=== PATIENT | female | born 1995 | race African-American/Black ===

== ENCOUNTER 2017-04-12 21:30 | Emergency (ER) | payer OTHER ==
[~2017-04-12] VITALS: Ht 170.2 cm; Wt 64.1 kg
[2017-04-12 21:40] VITALS: TEMP 37
[2017-04-12] MEDS ORDERED: ACETAMINOPHEN 500 MG TAB PO STA (22:20)
--- NOTE | 2017-04-12 22:24 | EMERGENCY ROOM VISIT NOTE ---
History Report prepared by Jahaira: Pooja Singh Under the Supervision of: Dr. Vipul Arguello M.D. First contact with patient: 21:53 Chief Complaint: VAGINAL BLEEDING Stated Complaint: ABDOMINAL PAIN, BLEEDING, 5-6 WKS History of Present Illness The patient is a 21 year old female who presents to the Emergency Room with complaints of persistent vaginal bleeding that began a few days ago. She notes she has severe lower abdominal pain. The patient states that this is her second , noting that she previously had an . She notes that her last menstrual period was on 02/27/17. The patient still has her appendix and gallbladder. She did not want us to call her parents. Source of History: patient Onset: few days Position: other (vagina) Quality: other (vaginal bleeding) Timing: other (persistent) Associated Symptoms: + abdominal pain Review of Systems See HPI for pertinent positives & negatives. A total of 10 systems reviewed and were otherwise negative. Past Medical & Surgical Medical Problems: (1) Hypertension Family History Heart disease Hypertension Social History Smoking Status: Never Smoker Smokeless Tobacco Use: No Alcohol Use: occasionally Drug Use: none Marital Status: single Housing Status: lives alone Occupation Status: student Current/Historical Medications No Active Prescriptions or Reported Meds Allergies Coded Allergies: No Known Allergies (Unverified , 04/14/17) Physical Exam Vital Signs Date Time Temp Pulse Resp B/P (MAP) Pulse Ox O2 Delivery O2 Flow Rate FiO2 04/13/17 01:49 79 18 118/73 99 04/12/17 23:55 84 18 121/73 99 Room Air 04/12/17 21:40 37.0 80 20 123/78 98 Room Air Physical Exam GENERAL: Patient is a healthy-appearing well-nourished female HEAD: Normocephalic atraumatic EYES: Ocular movements intact pupils equal and react to light OROPHARYNX mucous membranes are moist no exudates present no erythema or edema present NECK: Supple no nuchal rigidity CHEST: Good equal expansion LUNGS: Clear and equal to auscultation CARDIAC: Normal S1 and S2 ABDOMEN: Soft nontender no guarding BACK: No CVA tenderness EXTREMITIES: No pain upon palpation normal muscle strength in all groups no clubbing cyanosis or edema NEURO: Patient is following commands and answering questions appropriately. Alert and oriented x3 Cranial Nerves 2-12 grossly intact Medical Decision & Procedures ER Provider Diagnostic Interpretation: Radiology results as stated below per my review and radiologist interpretation: US OB 1st trimester: 8mm endometrial complex. Heterogeneous appearance of the gestational sac. No pole. Normal ovaries with blood flow demonstrated to them. No adnexal masses. Trace free fluid in pelvic cul-de-sac and right adnexa. No other significant abnormalities. At this time findings may present the appearance of a very early normal versus abnormal intrauterine . No adnexal masses suggest ectopic at this time. Suggest following the hCG trend with short interval follow up ultrasound as clinically indicated. Radiologist: Dylon Eisenberg M.D. Study ready at 23:20 and initial results transmitted at 23:47. Laboratory Results 04/12/17 22:34 Red Blood Count 4.35, Mean Corpuscular Volume 92.0, Mean Corpuscular Hemoglobin 30.6, Mean Corpuscular Hemoglobin Concent 33.3, Mean Platelet Volume 9.9, Neutrophils (%) (Auto) 60.0, Lymphocytes (%) (Auto) 33.1, Monocytes (%) (Auto) 5.7, Eosinophils (%) (Auto) 0.7, Basophils (%) (Auto) 0.2, Neutrophils # (Auto) 5.70, Lymphocytes # (Auto) 3.14, Monocytes # (Auto) 0.54, Eosinophils # (Auto) 0.07, Basophils # (Auto) 0.02 04/12/17 22:34 Test 04/12/17 22:34 04/12/17 23:50 White Blood Count 9.50 K/uL (4.8-10.8) Red Blood Count 4.35 M/uL (4.2-5.4) Hemoglobin 13.3 g/dL (12.0-16.0) Hematocrit 40.0 % (37-47) Mean Corpuscular Volume 92.0 fL (80-100) Mean Corpuscular Hemoglobin 30.6 pg (25-34) Mean Corpuscular Hemoglobin Concent 33.3 g/dl (32-36) Platelet Count 275 K/uL (130-400) Mean Platelet Volume 9.9 fL (7.4-10.4) Neutrophils (%) (Auto) 60.0 % Lymphocytes (%) (Auto) 33.1 % Monocytes (%) (Auto) 5.7 % Eosinophils (%) (Auto) 0.7 % Basophils (%) (Auto) 0.2 % Neutrophils # (Auto) 5.70 K/uL (1.4-6.5) Lymphocytes # (Auto) 3.14 K/uL (1.2-3.4) Monocytes # (Auto) 0.54 K/uL (0.11-0.59) Eosinophils # (Auto) 0.07 K/uL (0-0.5) Basophils # (Auto) 0.02 K/uL (0-0.2) RDW Standard Deviation 46.5 fL (36.4-46.3) RDW Coefficient of Variation 13.8 % (11.5-14.5) Immature Granulocyte % (Auto) 0.3 % Immature Granulocyte # (Auto) 0.03 K/uL (0.00-0.02) Prothrombin Time 10.4 SECONDS (9.0-12.0) Prothromb Time International Ratio 1.0 (0.9-1.1) Activated Partial Thromboplast Time 25.2 SECONDS (21.0-31.0) Partial Thromboplastin Ratio 1.0 Anion Gap 5.0 mmol/L (3-11) Est Creatinine Clear Calc Drug Dose 116.0 ml/min Estimated GFR () 133.3 Estimated GFR (Non- 115.0 BUN/Creatinine Ratio 11.3 (10-20) Calcium Level 9.3 mg/dl (8.5-10.1) Total Bilirubin 0.4 mg/dl (0.2-1) Aspartate Amino Transf (AST/SGOT) 14 U/L (15-37) Alanine Aminotransferase (ALT/SGPT) 19 U/L (12-78) Alkaline Phosphatase 43 U/L (45-117) Total Protein 8.7 gm/dl (6.4-8.2) Albumin 4.4 gm/dl (3.4-5.0) Globulin 4.3 gm/dl (2.5-4.0) Albumin/Globulin Ratio 1.0 (0.9-2) Human Chorionic Gonadotropin, Quant 531 mIU/mL Urine Color ORANGE Urine Appearance CLOUDY (CLEAR) Urine pH 5.0 (4.5-7.5) Urine Specific [place] 1.027 (1.000-1.030) Urine Protein TRACE (NEG) Urine Glucose (UA) NEG (NEG) Urine Ketones 1+ (NEG) Urine Occult Blood 3+ (NEG) Urine Nitrite NEG (NEG) Urine Bilirubin NEG (NEG) Urine Urobilinogen NEG (NEG) Urine Leukocyte Esterase TRACE (NEG) Urine WBC (Auto) 5-10 /hpf (0-5) Urine RBC (Auto) >30 /hpf (0-4) Urine Hyaline Casts (Auto) 5-10 /lpf (0-5) Urine Epithelial Cells (Auto) >30 /lpf (0-5) Urine Bacteria (Auto) NEG (NEG) Urine Test POS (NEG) Labs reviewed by ED physician. Medications Administered Medications (Trade) Dose Ordered Sig/Urmila Route Start Time Stop Time Status Last Admin Dose Admin Acetaminophen (Tylenol Tab) 1,000 mg NOW STAT PO 04/12/17 22:20 04/12/17 22:21 DC 04/12/17 22:43 1,000 MG Potassium Chloride (Klor-Con Tab) 70 meq NOW STAT PO 04/12/17 23:59 04/13/17 00:00 DC 04/13/17 00:19 60 MEQ Potassium Chloride (Klor-Con M10) 10 meq STK-MED ONCE .ROUTE 04/13/17 00:13 04/13/17 00:14 DC 04/13/17 00:19 10 MEQ ED Course 2218: Past medical records reviewed. The patient was evaluated in room C5. A complete history and physical examination was performed. 2220: Ordered Tylenol Tab 1000mg PO. 2339: Ordered Potassium Chloride 70 meq PO. 2359: Ordered Potassium Chloride 70meq PO. Medical Decision Differential diagnosis: Etiologies such as ectopic , dysfunction uterine bleeding, bleeding dyscrasia, trauma, infection, as well as others were entertained. This is a 21 year old emergency department complaining of vaginal bleeding the patient believes she is approximately 6 weeks . The patient was sent for an ultrasound to verify her . This does not show a heartbeat. Serial abdominal examinations were performed and the patient in the emergency department no tended patient exhibit surgical abdominal tenderness. Patient describes her pain as a cramping and Tylenol. Her beta hCG was found to only be 531. Based on this finding and concerned that this may be a miscarriage. I recommended the patient follow up with [facility] in 48 hours or [facility] for repeat beta-hCG. She was also told to return to the emergency department for increasing abdominal pain. I offered to discuss this case with the patient's mother however the patient declined. Patient was in agreement with the treatment plan. Medication Reconcilliation Current Medication List: was personally reviewed by me Blood Pressure Screening Patient's blood pressure: Normal blood pressure Impression Primary Impression: Vaginal bleeding Additional Impression: Scribe Attestation The scribe's documentation has been prepared under my direction and personally reviewed by me in its entirety. I confirm that the note above accurately reflects all work, treatment, procedures, and medical decision making performed by me. Departure Information Dispostion Home / Self-Care Prescriptions No Active Prescriptions or Reported Meds Referrals No Doctor, Assigned (PCP) Forms HOME CARE DOCUMENTATION FORM, IMPORTANT VISIT INFORMATION, WORK / SCHOOL INSTRUCTIONS Patient Instructions My [facility] Health Problem Qualifiers Additional Impression: Weeks of gestation: less than 8 weeks Qualified Codes: Z3A.01 - Less than 8 weeks gestation of
[2017-04-12 22:45] VITALS: Ht 170.2 cm; Wt 64.1 kg
[2017-04-12 23:01] LABS: BASO % 0.2 %; BASO ABS # 0.02 K/uL (0-0.2); EOS % 0.7 %; EOS ABS # 0.07 K/uL (0-0.5); HEMOGLOBIN 13.3 g/dL (12.0-16.0); IG# 0.03 K/uL (0.00-0.02); LYMPH % 33.1 %; LYMPH ABS # 3.14 K/uL (1.2-3.4); MEAN CORPUSCULAR HEMOGLOBIN 30.6 pg (25-34); MEAN CORPUSCULAR HGB CONC 33.3 g/dl (32-36); MEAN PLATELET VOLUME 9.9 fL (7.4-10.4); MONO % 5.7 %; MONO ABS # 0.54 K/uL (0.11-0.59); PLATELET COUNT 275 K/uL (130-400); RED CELL DISTRIBUTION WIDTH CV 13.8 % (11.5-14.5); RED CELL DISTRIBUTION WIDTH SD 46.5 fL (36.4-46.3)
[2017-04-12 23:21] LABS: PTT PATIENT 25.2 SECONDS (21.0-31.0)
[2017-04-12 23:36] LABS: ALBUMIN 4.4 gm/dl (3.4-5.0); CALCIUM 9.3 mg/dl (8.5-10.1); CREATININE 0.74 mg/dl (0.60-1.20); POTASSIUM 3.3 mmol/L (3.5-5.1)
[2017-04-12 23:39] LABS: TOTAL PROTEIN 8.7 gm/dl (6.4-8.2)
[2017-04-12] MEDS ORDERED: POTASSIUM CHLORIDE 20 MEQ/15 ML UDC PO STA (23:39)
[2017-04-12] MEDS ORDERED: POTASSIUM CHLORIDE 20 MEQ TABCR PO STA (23:59)
[2017-04-13] MEDS ORDERED: POTASSIUM CHLORIDE 10 MEQ TABCR ONE (00:13)
[2017-04-13 01:49] VITALS: BP 118/73; PULSE 79; O2SAT 99
--- NOTE | 2017-04-13 07:23 | DIAGNOSTIC IMAGING REPORT ---
<14 WKS SINGLE ULTRASOUND CLINICAL HISTORY: Pt c/o vaginal bleeding COMPARISON STUDY: None. FINDINGS: The endometrium measures 8 mm in thickness and is heterogeneous. No gestational sac is identified. The ovaries are normal in size and demonstrate normal color flow. Trace pelvic free fluid. No adnexal masses. IMPRESSION: Heterogeneous endometrium without evidence for a gestational sac. No adnexal masses. Therefore, in the setting of a positive test, this could represent an early nonvisualized intrauterine , recent spontaneous , or nonvisualized ectopic . Follow-up beta-hCG and/or ultrasound is recommended for continued evaluation. Electronically signed by: Valerio Bridges M.D. 04/13/2017 7:22 AM Dictated Date/Time: 04/13/2017 7:19 AM
== END 2017-04-13 01:50 | disposition home or self-care (01) ==
LOC: C.EDB 21:34 → C.EDC 04-13 01:50
DX: O20.8 Other hemorrhage in early pregnancy (principal); Z3A.01 Less than 8 weeks gestation of pregnancy; O10.011 Pre-existing essential hypertension complicating pregnancy, first trimester; Z82.49 Family history of ischemic heart disease and other diseases of the circulatory system

== ENCOUNTER 2017-04-14 14:05 | Emergency (ER) | payer OTHER ==
[~2017-04-14] VITALS: Ht 170.2 cm; Wt 63.5 kg
[2017-04-14 14:13] VITALS: Ht 170.2 cm; Wt 63.5 kg
[2017-04-14] MEDS ORDERED: ACETAMINOPHEN 500 MG TAB PO STA (14:25)
[2017-04-14] MEDS ORDERED: SODIUM CHLORIDE 0.9% 1000ML 1,000 ML IV STA (14:25)
--- NOTE | 2017-04-14 14:45 | EMERGENCY ROOM VISIT NOTE ---
History Report prepared by Jahaira: [place] Carpio Under the Supervision of: Dr. Silvano Medeiros M.D. First contact with patient: 14:21 Chief Complaint: VAGINAL BLEEDING Stated Complaint: ABDOMINAL PAIN AND BLEEDING, History of Present Illness The patient is a 21 year old female who presents to the Emergency Room with complaints of constant abdominal pain and vaginal bleeding beginning two days ago. The patient was seen in in the ED two days ago for vaginal bleeding and abdominal pain. She reports she went to her PCP two weeks ago and was told she was 5 weeks . Since her last visit to the ED, two days ago, her abdominal pain and vaginal bleeding have not resolved. When the patient was last in the ED she was told she could be having a possible miscarriage. She had a follow up appointment with OBGYN today and when she told them her symptoms referred her to return to the ED. The patient took a Tylenol 2 hours ago. Presently, the patient is having some abdominal discomfort. The patient reports she had a fever on arrival. She notes feeling feverish and having body aches. She denies any cough, nausea, vomiting, dark stools, or blood in stool. Source of History: patient Onset: two days ago Position: other (generalized) Quality: other (abdominal pain and vaginal bleeding) Timing: constant Associated Symptoms: + fevers, + abdominal pain, No cough, No nausea, No vomiting Review of Systems See HPI for pertinent positives and negatives. A total of ten systems were reviewed and were otherwise negative. Past Medical & Surgical Medical Problems: (1) Hypertension Family History Heart disease Hypertension Social History Smoking Status: Never Smoker Alcohol Use: occasionally Drug Use: none Marital Status: single Housing Status: lives alone Occupation Status: student Current/Historical Medications No Active Prescriptions or Reported Meds Allergies Coded Allergies: No Known Allergies (Unverified , 04/14/17) Physical Exam Vital Signs Date Time Temp Pulse Resp B/P (MAP) Pulse Ox O2 Delivery O2 Flow Rate FiO2 04/14/17 20:00 36.8 70 18 110/89 100 Room Air 04/14/17 18:25 37.7 04/14/17 17:44 78 18 119/72 100 Room Air 04/14/17 14:13 38.3 90 17 127/78 100 Room Air Physical Exam Physical Exam GENERAL: She is oriented to person, place, and time. She appears well- developed and well-nourished. She does not appear distressed. ____ HENT: Exam performed. Head: Normocephalic and atraumatic. Right Ear: External ear normal. No mastoid tenderness. Left Ear: External ear normal. No mastoid tenderness. Mouth/Throat: The oropharynx is clear and moist. No trismus in the jaw. No dental abscesses or uvula swelling. No oropharyngeal exudate or tonsillar abscesses. ____ EYES: Conjunctivae and EOM are normal. Pupils are equal, round, and reactive to light. Right eye exhibits no discharge. Left eye exhibits no discharge. No scleral icterus. ____ NECK: Normal range of motion. Neck supple. No JVD present. No spinous process tenderness present. No carotid bruit present. No rigidity. No tracheal deviation and normal range of motion present. No Brudzinski's sign and no Kernig 's sign noted. ____ CV: Normal rate, regular rhythm, normal heart sounds and intact distal pulses. There is no peripheral edema. Palpable radial pulses bue. ____ PULM/CHEST: Effort normal and breath sounds normal. No respiratory distress. No stridor. She has no wheezes. She has no rales. Chest Wall: She exhibits no tenderness. ____ ABD: Pain to palpation over LLQ and RLQ. The abdomen is soft. Bowel sounds are normal. She has no distension. No mass is present. There is no tenderness. There is no rebound, no guarding, Rovsig negative MUSC/SKEL: Normal range of motion. There is no peripheral edema, tenderness or deformity. LYMPH: No cervical adenopathy. ____ PELVIC: Dried blood in vaginal vault, cervical os closed, no palpable masses in on manual exam of adnexa NEURO: She is alert and oriented to person, place, and time. She has normal strength. No cranial nerve deficit or sensory deficit. Coordination and gait normal. GCS eye subscore is 4. GCS verbal subscore is 5. GCS motor subscore is 6. cerbellar tests wnl. ____ SKIN: Skin is warm and dry. She is not diaphoretic. ____ PSYCH: She has a normal mood and affect. She behavior is normal. Judgment and thought content normal. ____ Medical Decision & Procedures ER Provider Diagnostic Interpretation: Radiology results as stated below per my review and radiologist interpretation: <14 WKS SINGLE FINDINGS: Anteflexed uterus measures 8.3 x 4.2 x 4.6 cm. Endometrium measures 1.0 cm. No intrauterine or extra uterine gestation identified. No myometrial mass lesions. Right ovary measures 2.6 x 1.3 x 3.1 cm and is unremarkable with arterial inflow documented. Left ovary is also unremarkable, 2.1 x 1.0 x 1.6 cm with arterial inflow documented. No significant free pelvic fluid. IMPRESSION: 1. No intrauterine or extrauterine gestation identified. In the setting of a positive qualitative beta hCG, findings may reflect early , occult ectopic or recent . Follow-up ultrasound and quantitative beta hCG analysis recommended. 2. Bilateral ovaries are unremarkable without adnexal mass lesion. The above report was generated using voice recognition software. It may contain grammatical, syntax or spelling errors. Electronically signed by: Syed Randolph M.D. ABDOMEN AND PELVIS CT WITH IV CONTRAST FINDINGS: 4 mm solid nodule of the left lower lobe as seen on image 5 series 3. Lung bases are otherwise clear. No pneumatosis or pneumoperitoneum identified. The imaged inferior cardiac chambers are unremarkable. Study is moderately motion degraded. Accessory inferior right hepatic vein is noted. Liver otherwise appears unremarkable. There is no intrahepatic biliary ductal dilation or focal hepatic mass identified. The gallbladder, spleen, pancreas and adrenal glands are within normal limits. Kidneys, ureters and urinary bladder are unremarkable. There appears to be fluid within the endometrial canal. Mild free pelvic fluid. No adnexal mass lesions identified. Aorta is normal in course and caliber. No bulky adenopathy. No bowel obstruction or focal bowel wall thickening identified. Fluid-filled loops of small bowel within the lower abdomen and pelvis are likely physiologic. Air-filled noninflamed tubular structure of the right lower quadrant seen on image 323 series 3 suggests normal appendix. No evidence of acute appendicitis. The distal appendiceal tip is not well seen without the use of oral contrast. Soft tissues are unremarkable. Bones appear intact. IMPRESSION: 1. Moderately motion degraded exam. 2. Partially visualized appendix appears normal. No evidence of acute appendicitis. 3. No bowel obstruction or focal bowel wall thickening. 4. Mild free pelvic fluid is noted along with a mild amount of fluid within the endocervical canal. Electronically signed by: Syed Randolph M.D. Laboratory Results 04/14/17 14:52 Red Blood Count 4.08, Mean Corpuscular Volume 91.2, Mean Corpuscular Hemoglobin 31.4, Mean Corpuscular Hemoglobin Concent 34.4, Mean Platelet Volume 9.9, Neutrophils (%) (Auto) 57.9, Lymphocytes (%) (Auto) 34.0, Monocytes (%) (Auto) 6.9, Eosinophils (%) (Auto) 0.9, Basophils (%) (Auto) 0.3, Neutrophils # (Auto) 3.36, Lymphocytes # (Auto) 1.97, Monocytes # (Auto) 0.40, Eosinophils # (Auto) 0.05, Basophils # (Auto) 0.02 04/14/17 14:52 Test 04/14/17 14:52 04/14/17 15:12 04/14/17 15:30 White Blood Count 5.80 K/uL (4.8-10.8) Red Blood Count 4.08 M/uL (4.2-5.4) Hemoglobin 12.8 g/dL (12.0-16.0) Hematocrit 37.2 % (37-47) Mean Corpuscular Volume 91.2 fL (80-100) Mean Corpuscular Hemoglobin 31.4 pg (25-34) Mean Corpuscular Hemoglobin Concent 34.4 g/dl (32-36) Platelet Count 264 K/uL (130-400) Mean Platelet Volume 9.9 fL (7.4-10.4) Neutrophils (%) (Auto) 57.9 % Lymphocytes (%) (Auto) 34.0 % Monocytes (%) (Auto) 6.9 % Eosinophils (%) (Auto) 0.9 % Basophils (%) (Auto) 0.3 % Neutrophils # (Auto) 3.36 K/uL (1.4-6.5) Lymphocytes # (Auto) 1.97 K/uL (1.2-3.4) Monocytes # (Auto) 0.40 K/uL (0.11-0.59) Eosinophils # (Auto) 0.05 K/uL (0-0.5) Basophils # (Auto) 0.02 K/uL (0-0.2) RDW Standard Deviation 44.8 fL (36.4-46.3) RDW Coefficient of Variation 13.5 % (11.5-14.5) Immature Granulocyte % (Auto) 0.0 % Immature Granulocyte # (Auto) 0.00 K/uL (0.00-0.02) Prothrombin Time 10.9 SECONDS (9.0-12.0) Prothromb Time International Ratio 1.0 (0.9-1.1) Activated Partial Thromboplast Time 25.0 SECONDS (21.0-31.0) Partial Thromboplastin Ratio 1.0 Anion Gap 4.0 mmol/L (3-11) Est Creatinine Clear Calc Drug Dose 101.0 ml/min Estimated GFR () 112.7 Estimated GFR (Non- 97.3 BUN/Creatinine Ratio 10.1 (10-20) Lactic Acid Level 1.5 mmol/L (0.4-2.0) Calcium Level 9.1 mg/dl (8.5-10.1) Total Bilirubin 0.5 mg/dl (0.2-1) Aspartate Amino Transf (AST/SGOT) 12 U/L (15-37) Alanine Aminotransferase (ALT/SGPT) 17 U/L (12-78) Alkaline Phosphatase 40 U/L (45-117) Total Protein 8.1 gm/dl (6.4-8.2) Albumin 3.9 gm/dl (3.4-5.0) Globulin 4.2 gm/dl (2.5-4.0) Albumin/Globulin Ratio 0.9 (0.9-2) Human Chorionic Gonadotropin, Quant 140 mIU/mL Urine Color YELLOW Urine Appearance CLEAR (CLEAR) Urine pH 5.5 (4.5-7.5) Urine Specific [place] 1.020 (1.000-1.030) Urine Protein TRACE (NEG) Urine Glucose (UA) NEG (NEG) Urine Ketones NEG (NEG) Urine Occult Blood 3+ (NEG) Urine Nitrite NEG (NEG) Urine Bilirubin NEG (NEG) Urine Urobilinogen NEG (NEG) Urine Leukocyte Esterase TRACE (NEG) Urine WBC (Auto) 1-5 /hpf (0-5) Urine RBC (Auto) >30 /hpf (0-4) Urine Hyaline Casts (Auto) 1-5 /lpf (0-5) Urine Epithelial Cells (Auto) >30 /lpf (0-5) Urine Bacteria (Auto) NEG (NEG) Urine Test POS (NEG) Influenza Type A Antigen Neg for Influ A (NEG) Influenza Type B Antigen Neg for Influ B (NEG) Laboratory results reviewed by me Medications Administered Medications (Trade) Dose Ordered Sig/Urmila Route Start Time Stop Time Status Last Admin Dose Admin Sodium Chloride 1,000 ml @ 999 mls/hr Q1H1M STAT IV 04/14/17 14:25 04/14/17 15:25 DC 04/14/17 14:25 999 MLS/HR Morphine Sulfate (MoRPHine SULFATE INJ) 4 mg NOW STAT IV 04/14/17 17:48 04/14/17 17:49 DC 04/14/17 18:11 4 MG ED Course 1425: Ordered Sodium Chloride 1000 ml @ 999 mls/hr IV. 1429: The patient was evaluated in room B5. A complete history and physical exam was performed. 1748: Ordered Morphine Sulfate 4 mg IV. 1820: Repeat temperature within normal limits. Patient serum hcg 140 after being 531 two days ago. Repeat ultrasound showered no intrauterine or extrauterine gestation. Bilateral ovaries are unremarkable. On repeat assessment , the patient is still having pain of abdomen specifically in RLQ. I discussed with patient as well as the patients mother on cell phone, with patients permission, of possible appendicitis given continued RLQ pain and fever. Also given that the patient's hcg is falling, the patient most likely had a miscarriage and there will be no radiation to a fetus. The patient has agreed to a CT scan. 1955: Vitals stable, patient continues to have pain in lower abdomen, CT is negative for appendicitis, pain is likely a result of miscarriage, the patient will follow up with OBGYN. 2004: DISCHARGE - Plan of care discussed with patient and questions answered. The patient was given both verbal and printed discharge instructions. The patient verbalized understanding and ability to comply. The patient is to seek outpatient follow up as noted in the discharge instructions. The patient verbalized understanding and ability to comply. The patient is discharged in stable condition. The patient was instructed to return for worsening symptoms. Medical Decision 1820: Repeat temperature within normal limits. Patient serum hcg 140 after being 531 two days ago. Repeat ultrasound showered no intrauterine or extrauterine gestation. Bilateral ovaries are unremarkable. On repeat assessment , the patient is still having pain of abdomen specifically in RLQ. I discussed with patient as well as the patients mother on cell phone, with patients permission, of possible appendicitis given continued RLQ pain and fever. Also given that the patient's hcg is falling, the patient most likely had a miscarriage and there will be no radiation to a fetus. The patient has agreed to a CT scan. 195: Vitals stable, patient continues to have pain in lower abdomen, CT is negative for appendicitis, pain is likely a result of miscarriage, the patient will follow up with OBGYN. Medication Reconcilliation Current Medication List: was personally reviewed by me Blood Pressure Screening Patient's blood pressure: Normal blood pressure Impression Primary Impression: Threatened Scribe Attestation The scribe's documentation has been prepared under my direction and personally reviewed by me in its entirety. I confirm that the note above accurately reflects all work, treatment, procedures, and medical decision making performed by me. The chart was completed utilizing [employer] voice recognition software. Grammatical errors, random word insertions, pronoun errors, and incomplete sentences are an occasional consequence of this system due to software limitations, ambient noise, and hardware issues. Any formal questions or concerns about the content, text, or information contained within the body of this dictation should be directly addressed to the physician for clarification. Departure Information Dispostion Home / Self-Care Prescriptions No Active Prescriptions or Reported Meds Referrals [facility] (PCP) Forms HOME CARE DOCUMENTATION FORM, IMPORTANT VISIT INFORMATION, WORK / SCHOOL INSTRUCTIONS Patient Instructions Miscarriage Dc, Miscarriage During, Miscarriage Emotions, Miscarriage Poss Causes, Miscarriage Recovery, My [facility]
[2017-04-14 15:14] LABS: BASO % 0.3 %; BASO ABS # 0.02 K/uL (0-0.2); EOS % 0.9 %; EOS ABS # 0.05 K/uL (0-0.5); HEMATOCRIT 37.2 % (37-47); HEMOGLOBIN 12.8 g/dL (12.0-16.0); LYMPH ABS # 1.97 K/uL (1.2-3.4); MEAN CELL VOLUME 91.2 fL (80-100); MEAN CORPUSCULAR HEMOGLOBIN 31.4 pg (25-34); MEAN CORPUSCULAR HGB CONC 34.4 g/dl (32-36); MEAN PLATELET VOLUME 9.9 fL (7.4-10.4); MONO % 6.9 %; NEUT % 57.9 %; NEUT ABS # 3.36 K/uL (1.4-6.5); PLATELET COUNT 264 K/uL (130-400); RED CELL DISTRIBUTION WIDTH CV 13.5 % (11.5-14.5); RED CELL DISTRIBUTION WIDTH SD 44.8 fL (36.4-46.3)
[2017-04-14 15:33] LABS: ALBUMIN 3.9 gm/dl (3.4-5.0); CALCIUM 9.1 mg/dl (8.5-10.1); CREATININE 0.85 mg/dl (0.60-1.20); POTASSIUM 3.5 mmol/L (3.5-5.1)
[2017-04-14 15:35] LABS: TOTAL PROTEIN 8.1 gm/dl (6.4-8.2)
[2017-04-14 16:16] LABS: INFLUENZA B ANTIGEN Neg for Influ B (NEG)
[2017-04-14] MEDS ORDERED: MoRPHine SULFATE 4 MG/ML 1 ML CARP\\VIAL IV STA (17:48)
--- NOTE | 2017-04-14 18:10 | DIAGNOSTIC IMAGING REPORT ---
<14 WKS SINGLE HISTORY: 21 years-old Female vaginal bleeding abdominal pain febrile acute vaginal bleeding COMPARISON: Pelvic ultrasound 04/12/2017 TECHNIQUE: Multiple real-time sonographic images of the deep pelvic structures were obtained transabdominally assessing grayscale appearance and color flow FINDINGS: Anteflexed uterus measures 8.3 x 4.2 x 4.6 cm. Endometrium measures 1.0 cm. No intrauterine or extra uterine gestation identified. No myometrial mass lesions. Right ovary measures 2.6 x 1.3 x 3.1 cm and is unremarkable with arterial inflow documented. Left ovary is also unremarkable, 2.1 x 1.0 x 1.6 cm with arterial inflow documented. No significant free pelvic fluid. IMPRESSION: 1. No intrauterine or extrauterine gestation identified. In the setting of a positive qualitative beta hCG, findings may reflect early , occult ectopic or recent . Follow-up ultrasound and quantitative beta hCG analysis recommended. 2. Bilateral ovaries are unremarkable without adnexal mass lesion. The above report was generated using voice recognition software. It may contain grammatical, syntax or spelling errors. Electronically signed by: Syed Randolph M.D. 04/14/2017 6:09 PM Dictated Date/Time: 04/14/2017 5:52 PM
[2017-04-14] MEDS ORDERED: OPTIRAY 320 IV PRN (18:45)
--- NOTE | 2017-04-14 19:11 | DIAGNOSTIC IMAGING REPORT ---
ABDOMEN AND PELVIS CT WITH IV CONTRAST CT DOSE: 295.66 mGy.cm HISTORY: Acute right lower quadrant pelvic pain with recent spontaneous . rlq pain r/o appy TECHNIQUE: Multiaxial CT images of the abdomen and pelvis were performed following the use of intravenous contrast. A dose lowering technique was utilized adhering to the principles of ALARA. COMPARISON STUDY: Pelvic ultrasound of same day. FINDINGS: 4 mm solid nodule of the left lower lobe as seen on image 5 series 3. Lung bases are otherwise clear. No pneumatosis or pneumoperitoneum identified. The imaged inferior cardiac chambers are unremarkable. Study is moderately motion degraded. Accessory inferior right hepatic vein is noted. Liver otherwise appears unremarkable. There is no intrahepatic biliary ductal dilation or focal hepatic mass identified. The gallbladder, spleen, pancreas and adrenal glands are within normal limits. Kidneys, ureters and urinary bladder are unremarkable. There appears to be fluid within the endometrial canal. Mild free pelvic fluid. No adnexal mass lesions identified. Aorta is normal in course and caliber. No bulky adenopathy. No bowel obstruction or focal bowel wall thickening identified. Fluid-filled loops of small bowel within the lower abdomen and pelvis are likely physiologic. Air-filled noninflamed tubular structure of the right lower quadrant seen on image 323 series 3 suggests normal appendix. No evidence of acute appendicitis. The distal appendiceal tip is not well seen without the use of oral contrast. Soft tissues are unremarkable. Bones appear intact. IMPRESSION: 1. Moderately motion degraded exam. 2. Partially visualized appendix appears normal. No evidence of acute appendicitis. 3. No bowel obstruction or focal bowel wall thickening. 4. Mild free pelvic fluid is noted along with a mild amount of fluid within the endocervical canal. Electronically signed by: Syed Randolph M.D. 04/14/2017 7:10 PM Dictated Date/Time: 04/14/2017 7:04 PM
[2017-04-14 20:00] VITALS: BP 110/89; PULSE 70; TEMP 36.8; O2SAT 100
--- NOTE | 2017-04-18 15:53 | Pharmacy Progress Note ---
ED Pharmacist Culture FollowUp Date of Service: Apr 18, 2017. Patient was seen on 04/14 for abdominal pain/bleeding. Female genital culture grew Group B Beta strep and Rare MSSA. No clue cells in gram stain. Discussed case with Dr. Louis who felt likely contaminates. Followed up with patient who stated she was feeling better than she had been and has an appointment with [facility] on Monday. Discussed that we had a culture that had growth of bacteria but our physician felt treatment not needed at this time but to follow up the results with her [employer]. Patient requested that the results be faxed to [facility] for her Appointment on Monday. Results were faxed to [facility] Medical Records at [phone] to be added to the patient's chart.
== END 2017-04-14 20:13 | disposition home or self-care (01) ==
LOC: C.EDB 14:06
DX: O20.0 Threatened abortion (principal); O10.011 Pre-existing essential hypertension complicating pregnancy, first trimester; Z3A.01 Less than 8 weeks gestation of pregnancy; Z82.49 Family history of ischemic heart disease and other diseases of the circulatory system